=== PATIENT | female | born 1975 | race Caucasian/White ===

== ENCOUNTER 2017-07-16 00:01 | Emergency (ER) | payer OTHER ==
[~2017-07-16] VITALS: Ht 162.6 cm; Wt 72.6 kg
[~2017-07-16 00:01] MED LIST: ACETAMINOPHEN325 M1 PO; ALBUTEROL INH; ALEVE220 MG PO; ALPRAZOLAM PO; AMITRIPTYLINE H25 M2 PO; ANASPAZ0.125 MG SL; ATIVAN0.5 MG; AUGMENTIN 875875 MG PO; BACTRIM DS TAB1 EACH PO; BENTYL 10 MG CA10 M1 PO; BENTYL20 MG PO; CARAFATE 1 GM TA1 G1 PO; CARISOPRODOL 3350 MG PO; CIPRO500 MG PO; CLIMARA 0.00.0375 MG TD; CLONAZEPAM PO; COMPAZINE10 MG; COMPAZINE5 MG PO; COUMADIN7.5 MG; CYMBALTA20 MG; DESYREL50 MG PO; DIAZEPAM 5 MG5 M1; DILAUDID 2 MG TA2 MG PO; DILAUDID2 M1 PO; ELIQUIS5 MG PO; ENOXAPARIN80 MG/0.8; FLUCONAZOLE PO; GOLYTELY SOLU4000 ML PO; HYDROCODON-ACE1 EAC8 PO; HYDROCODON-ACE1 EACH; HYDROCODONE-APA1 TA1 PO; KEPPRA 500 MG500 M1 PO; KLOR-CON 1010 MEQ PO; LEXAPRO 10 MG T10 M1 PO; LEXAPRO20 MG PO; LIDODERM 5%1 PATC1 TRANSDERM; LOPERAMIDE 2 MG2 M1 PO; LORTAB; LORTABELXR PO; MACROBID 100 M100 M1 PO; METHADONE HCL5 MG PO; METOCLOPRAMIDE10 MG PO; MOBIC7.5 MG PO; MULTIVITAMINS PO; NAPROSYN500 MG PO; NEPHROCAPS SOFT1 CAP PO; NEURONTIN600 MG PO; NEXIUM40 MG; NEXIUM40 MG PO; NORCO 10-325 T1 EACH PO; NORCO 5-325 TA1 EACH PO; NORCO 7.5-3251 EACH PO; NORFLEX100 MG PO; NORTRIPTYLINE H25 M3; ONDANSETRON HCL4 M3 PO; OSMOLITE CAL; OXYCODONE HCL E15 MG PO; OXYCONTIN10 M1 PO; PAMELOR25 MG PO; PERCOCET 10-321 EACH PO; PERCOCET 5-3251 EACH PO; PERCOCET 7.5-31 EACH PO; PERCOCET PO; PHENERGAN 25 MG25 M1; PHENERGAN 25 MG25 M1 PO; PHENERGAN 25 MG25 MG PO; POTASSIUM20 OR; POTASSIUM20 PO; PREDNISONE50 MG PO; PRILOSEC 20 MG20 MG PO; PROAIR HFA8.5 GM INH; PROMETHAZINE HC25 MG RECTAL; PROMS25 WY RECTAL; PROTONIX40 M1 PO; PROZAC 10 MG CA10 M1 PO; PROZAC 20 MG20 M1 PO; PROZAC 20 MG20 MG PO; REGLAN 10 MG TA10 MG PO; REGLAN 5 MG TAB5 MG PO; TESSALON PERLE100 MG; TESSALON PERLE100 MG PO; TOPAMAX200 MG PO; TRANSDERM-SCO1 PATC1 TD; TRAZODONE 150150 M1 PO; VICODIN 5-5001 EACH PO; VITAMINC500 PO; VIVELLE-DOT1 EAC1 TD; XANAX 0.25 MG0.25 MG PO; XANAX 0.5 MG0.5 M1 PO; XANAX XR1 MG PO; XANAX1 MG PO; ZENPEP DR 20,01 EACH PO; ZINC SULFATE 2220 M1 PO; ZOFRAN ODT4 MG PO; ZOFRAN4 MG PO; ZOLOFT50 MG PO; ZPAK; ZYPREXA2.5 MG PO; [UNRECOGNIZED DRUG - OTHER] PO; [UNRECOGNIZED DRUG - OTHER] PO
[2017-07-16 00:32] LABS: ABSOLUTE EOSINOPHILS 0.1 thou/uL (0.0-0.7); ABSOLUTE LYMPHOCYTES 2.4 thou/uL (0.8-5.3); ABSOLUTE MONOCYTES 0.3 thou/uL (0.0-1.2); ABSOLUTE NEUTROPHILS 4.7 thou/uL (1.6-8.1); BASOPHILS 0.5 %; EOSINOPHILS 1.4 %; HEMATOCRIT 44.7 % (37.0-47.0); LYMPHOCYTES 31.5 %; MCH 29.8 pg (26.0-34.0); MCHC 33.5 g/dL (28.0-37.0); MONOCYTES 4.3 %; MPV 8.5 fl. (7.2-11.1); NUCLEATED RBCS 0 /100WBC; PLATELET COUNT* 220 thou/uL (150-400); POLYS 62.3 %; RBC 5.03 mil/uL (4.20-5.00); RDW-CV 15.5 % (10.5-14.5); WBC 7.6 thou/uL (4.0-11.0)
[2017-07-16 00:42] LABS: ANION GAP 10 mmol/L (7-16); BUN 12 mg/dL (7-18); CALCIUM 9.2 mg/dL (8.5-10.1); CHLORIDE 100 mmol/L (98-107); CO2 29 mmol/L (21-32); CREATININE 0.8 mg/dL (0.6-1.3); GLUCOSE 116 mg/dL (70-99); POTASSIUM 3.2 mmol/L (3.5-5.1); SODIUM 139 mmol/L (136-145)
[2017-07-16 00:49] LABS: ALBUMIN 3.8 g/dL (3.4-5.0); ALKALINE PHOSPHATASE 121 U/L (46-116); LIPASE 120 U/L (73-393); SGOT 15 U/L (15-37); SGPT 21 U/L (30-65); TOTAL BILIRUBIN 0.5 mg/dL (<0.1-1.0); TOTAL PROTEIN 7.4 g/dL (6.4-8.2); TROPONIN-I LEVEL <0.06 ng/mL (<0.06)
[2017-07-16] MEDS ORDERED: PHENERGAN 25 MG25 M1 PO (04:08)
[2017-07-16] MEDS ORDERED: POTASSIUM20 PO (04:08)
[2017-07-16 04:16] VITALS: BP 124/66
--- NOTE | 2017-07-16 12:51 | EKG ---
[place] [address] ELECTROCARDIOGRAM REPORT Name: NATHALIA CASTRO Room: [facility]#: [id number] Admission: 07/16/17 Attend Phys: Discharge: 07/16/17 Date of : 75 Report #: [id number] THIS REPORT FOR: //name// [facility] ED Test Date: 2017-07-16 Test Time: 00:15:42 Pat Name: NATHALIA CASTRO Department: Room: Gender: F Fence Maker: RICHIE Wright : 1975 Requested By: Edie Rapp Order Number: [id number] MD: Frank Strange Measurements Intervals [place] Rate: 95 P: 28 VT: 158 QRS: 16 QRSD: 121 T: -27 QT: 357 QTc: 449 Interpretive Statements Sinus rhythm Nonspecific T abnormalities, inferior leads Baseline wander in lead(s) II,III,aVF Compared to ECG 09/25/2016 20:47:40 Sinus tachycardia no longer present T-wave abnormality still present Electronically Signed On 07-16-2017 12:51:46 SPARE FIX[employer] by Frank Strange [email or web address] <ELECTRONICALLY SIGNED> By: Frank Strange MD, FACC 07/16/17 1251 0015 0015 Frank Strange MD, [facility] /EPI
== END 2017-07-16 04:16 | disposition home or self-care (01) ==
LOC: M.ERS 00:01
PROVIDERS: Emergency Medicine
DX: R11.2 Nausea with vomiting, unspecified (principal); R19.7 Diarrhea, unspecified; F17.210 Nicotine dependence, cigarettes, uncomplicated; Z85.528 Personal history of other malignant neoplasm of kidney; Z90.5 Acquired absence of kidney; Z90.710 Acquired absence of both cervix and uterus; Z88.1 Allergy status to other antibiotic agents; Z88.5 Allergy status to narcotic agent

== ENCOUNTER 2018-11-11 23:39 | Emergency (ER) | payer OTHER ==
[~2018-11-11] VITALS: Ht 165.1 cm; Wt 97.5 kg
[2018-11-11] MEDS ORDERED: LAMOTRIGINE150 MG PO (23:52)
[2018-11-12 00:24] LABS: ABSOLUTE BASOPHILS 0.1 thou/uL (0.0-0.2); ABSOLUTE EOSINOPHILS 0.3 thou/uL (0.0-0.7); ABSOLUTE LYMPHOCYTES 2.8 thou/uL (0.8-5.3); ABSOLUTE MONOCYTES 0.4 thou/uL (0.0-1.2); ABSOLUTE NEUTROPHILS 4.3 thou/uL (1.6-8.1); BASOPHILS 1.1 %; EOSINOPHILS 4.3 %; HEMATOCRIT 41.3 % (37.0-47.0); HEMOGLOBIN 13.8 gm/dL (12.0-15.0); LYMPHOCYTES 35.6 %; MCH 28.7 pg (26.0-34.0); MCHC 33.3 g/dL (28.0-37.0); MCV 86.3 fL (80.0-100.0); MONOCYTES 5.2 %; MPV 8.7 fl. (7.2-11.1); NUCLEATED RBCS 0 /100WBC; PLATELET COUNT* 257 thou/uL (150-400); POLYS 53.8 %; RBC 4.79 mil/uL (4.20-5.00); RDW-CV 13.8 % (10.5-14.5); WBC 7.9 thou/uL (4.0-11.0)
[2018-11-12 00:36] LABS: ALBUMIN 3.8 g/dL (3.4-5.0); CALCIUM 8.6 mg/dL (8.5-10.1); CREATININE 0.7 mg/dL (0.6-1.3); POTASSIUM 3.4 mmol/L (3.5-5.1); TOTAL BILIRUBIN 0.2 mg/dL (<0.1-1.0); TOTAL PROTEIN 7.3 g/dL (6.4-8.2)
[2018-11-12 01:43] LABS: URINE BILIRUBIN NEGATIVE (Negative); URINE CLARITY CLEAR; URINE COLOR YELLOW; URINE GLUCOSE-RANDOM NEGATIVE (Negative); URINE KETONES NEGATIVE (Negative); URINE PROTEIN NEGATIVE (Negative); URINE SPECIFIC GRAVITY > 1.030 (1.005-1.030)
[2018-11-12 01:44] LABS: URINE BLOOD 3+ (Negative); URINE LEUKOCYTES-REFLEX NEGATIVE (Negative); URINE NITRITE-REFLEX NEGATIVE (Negative); URINE UROBILINOGEN 0.2 E.U./dl (0.2-1.0)
[2018-11-12 01:50] LABS: BACTERIA-REFLEX >30 Many /HPF (None Seen); CASTS None Seen /LPF (None Seen); CRYSTALS None Seen /LPF (None Seen); MUCUS 0-3 Light strn/LPF (None Seen); SQUAMOUS 0-3 Few /LPF (0-3); URINE RBC >20 Many /HPF (0-2); URINE WBC-REFLEX 0-5 Rare /HPF (0-5)
[2018-11-12] MEDS ORDERED: NORCO 5-325 TA1 EAC1 PO (01:52)
[2018-11-12] MEDS ORDERED: ZOFRAN ODT4 MG DISSOLVE (01:52)
[2018-11-12 02:11] VITALS: BP 100/66
== END 2018-11-12 02:14 | disposition home or self-care (01) ==
LOC: M.ERS 23:39
PROVIDERS: Emergency Medicine Emergency Medical Services
DX: R10.84 Generalized abdominal pain (principal); R11.2 Nausea with vomiting, unspecified; R19.7 Diarrhea, unspecified; F17.210 Nicotine dependence, cigarettes, uncomplicated; Z88.1 Allergy status to other antibiotic agents; Z88.5 Allergy status to narcotic agent; Z88.6 Allergy status to analgesic agent; Z88.8 Allergy status to other drugs, medicaments and biological substances; Z85.528 Personal history of other malignant neoplasm of kidney; Z87.01 Personal history of pneumonia (recurrent); Z90.710 Acquired absence of both cervix and uterus; Z90.5 Acquired absence of kidney

== ENCOUNTER 2020-09-28 23:09 | Emergency (ER) | payer OTHER ==
[~2020-09-28] VITALS: Ht 162.6 cm; Wt 90.7 kg
[~2020-09-28 23:09] MED LIST changes: +BENTYL 20 MG TA20 M1 PO; +LAMOTRIGINE150 MG PO; +NORCO 5-325 TA1 EAC1 PO; +ZOFRAN ODT4 MG DISSOLVE
[2020-09-28] MEDS ORDERED: NEURONTIN300 MG PO (23:27)
[2020-09-28 23:30] LABS: URINE BILIRUBIN NEGATIVE (Negative); URINE BLOOD 3+ (Negative); URINE CLARITY CLEAR; URINE GLUCOSE-RANDOM NEGATIVE (Negative); URINE KETONES NEGATIVE (Negative); URINE LEUKOCYTES-REFLEX NEGATIVE (Negative); URINE NITRITE-REFLEX NEGATIVE (Negative); URINE PROTEIN NEGATIVE (Negative); URINE SPECIFIC GRAVITY <= 1.005 (1.005-1.030); URINE UROBILINOGEN 0.2 E.U./dl (0.2-1.0)
[2020-09-28 23:32] LABS: URINE COLOR PINK
[2020-09-28 23:45] LABS: ABSOLUTE BASOPHILS 0.1 thou/uL (0.0-0.2); ABSOLUTE EOSINOPHILS 0.4 thou/uL (0.0-0.7); ABSOLUTE LYMPHOCYTES 2.9 thou/uL (0.8-5.3); ABSOLUTE MONOCYTES 0.4 thou/uL (0.0-1.2); ABSOLUTE NEUTROPHILS 4.9 thou/uL (1.6-8.1); BASOPHILS 0.8 %; EOSINOPHILS 4.8 %; HEMATOCRIT 37.7 % (37.0-47.0); HEMOGLOBIN 12.6 gm/dL (12.0-15.0); LYMPHOCYTES 33.4 %; MCH 28.4 pg (26.0-34.0); MCHC 33.4 g/dL (28.0-37.0); MONOCYTES 4.6 %; MPV 8.4 fl. (7.2-11.1); NUCLEATED RBCS 0 /100WBC; PLATELET COUNT* 253 thou/uL (150-400); POLYS 56.4 %; RBC 4.44 mil/uL (4.20-5.00); WBC 8.7 thou/uL (4.0-11.0)
[2020-09-28 23:53] LABS: CALCIUM 9.3 mg/dL (8.5-10.1); CREATININE 0.6 mg/dL (0.6-1.3)
[2020-09-28 23:54] LABS: SQUAMOUS 0-3 Few /LPF (0-3); URINE RBC >20 Many /HPF (0-2); URINE WBC-REFLEX None Seen /HPF (0-5)
[2020-09-28 23:54] LABS: POTASSIUM 2.9 mmol/L (3.5-5.1)
[2020-09-28 23:55] LABS: BACTERIA-REFLEX 1-9 Few /HPF (None Seen); CASTS None Seen /LPF (None Seen); CRYSTALS None Seen /LPF (None Seen); MUCUS 4-6 Moderate strn/LPF (None Seen)
[2020-09-29 00:30] LABS: AMP/METHAMP Negative (Negative); BARBITURATES Negative (Negative); BENZODIAZEPINES Negative (Negative); COCAINE Negative (Negative); METHADONE Negative (Negative); OPIATES POSITIVE (Negative); PCP Negative (Negative); THC Negative (Negative)
[2020-09-29] MEDS ORDERED: POTASSIUM20 PO (01:51)
[2020-09-29] MEDS ORDERED: ZOFRAN ODT4 MG PO (01:53)
[2020-09-29] MEDS ORDERED: HYDROCODON-ACE1 EAC8 PO (01:53)
[2020-09-29] MEDS ORDERED: PHENERGAN 25 MG25 M1 PO (01:55)
[2020-09-29 02:50] VITALS: BP 143/94
== END 2020-09-29 02:51 | disposition home or self-care (01) ==
LOC: M.ERS 23:09
PROVIDERS: Emergency Medicine
DX: N23 Unspecified renal colic (principal); R11.2 Nausea with vomiting, unspecified; F17.210 Nicotine dependence, cigarettes, uncomplicated; Z88.1 Allergy status to other antibiotic agents; Z88.6 Allergy status to analgesic agent; Z88.5 Allergy status to narcotic agent; Z85.528 Personal history of other malignant neoplasm of kidney; Z87.01 Personal history of pneumonia (recurrent); Z90.710 Acquired absence of both cervix and uterus; Z79.899 Other long term (current) drug therapy

== ENCOUNTER 2020-10-05 10:03 | Emergency (ER) | payer OTHER ==
[~2020-10-05] VITALS: Ht 165.1 cm; Wt 95.3 kg
[~2020-10-05 10:03] MED LIST changes: +NEURONTIN300 MG PO
[2020-10-05] MEDS ORDERED: FLOMAX0.4 MG PO (10:15)
[2020-10-05 10:22] LABS: URINE BILIRUBIN NEGATIVE (Negative); URINE BLOOD 2+ (Negative); URINE CLARITY CLEAR; URINE COLOR YELLOW; URINE GLUCOSE-RANDOM NEGATIVE (Negative); URINE KETONES NEGATIVE (Negative); URINE LEUKOCYTES-REFLEX NEGATIVE (Negative); URINE NITRITE-REFLEX NEGATIVE (Negative); URINE PROTEIN NEGATIVE (Negative); URINE UROBILINOGEN 0.2 E.U./dl (0.2-1.0)
[2020-10-05 10:26] LABS: SQUAMOUS >10 Many /LPF (0-3); URINE WBC-REFLEX None Seen /HPF (0-5)
[2020-10-05 10:27] LABS: CASTS None Seen /LPF (None Seen); CRYSTALS None Seen /LPF (None Seen); MUCUS None Seen strn/LPF (None Seen)
[2020-10-05 10:36] LABS: ABSOLUTE BASOPHILS 0.1 thou/uL (0.0-0.2); ABSOLUTE EOSINOPHILS 0.4 thou/uL (0.0-0.7); ABSOLUTE LYMPHOCYTES 2.4 thou/uL (0.8-5.3); ABSOLUTE MONOCYTES 0.3 thou/uL (0.0-1.2); ABSOLUTE NEUTROPHILS 5.1 thou/uL (1.6-8.1); EOSINOPHILS 4.9 %; HEMATOCRIT 40.4 % (37.0-47.0); HEMOGLOBIN 13.6 gm/dL (12.0-15.0); LYMPHOCYTES 28.7 %; MCH 28.5 pg (26.0-34.0); MCHC 33.7 g/dL (28.0-37.0); MCV 84.7 fL (80.0-100.0); MPV 8.6 fl. (7.2-11.1); NUCLEATED RBCS 0 /100WBC; PLATELET COUNT* 274 thou/uL (150-400); POLYS 61.4 %; RBC 4.77 mil/uL (4.20-5.00); RDW-CV 15.3 % (10.5-14.5); WBC 8.3 thou/uL (4.0-11.0)
[2020-10-05 10:43] LABS: CALCIUM 8.9 mg/dL (8.5-10.1); CREATININE 0.7 mg/dL (0.6-1.3); POTASSIUM 3.2 mmol/L (3.5-5.1)
[2020-10-05 10:48] LABS: ALBUMIN 3.9 g/dL (3.4-5.0); TOTAL BILIRUBIN 0.2 mg/dL (<0.1-1.0); TOTAL PROTEIN 7.6 g/dL (6.4-8.2)
[2020-10-05 11:05] VITALS: BP 189/111
== END 2020-10-05 11:05 | disposition home or self-care (01) ==
LOC: M.ERS 10:03
PROVIDERS: Family Medicine
DX: R10.84 Generalized abdominal pain (principal); M54.9 Dorsalgia, unspecified; R11.2 Nausea with vomiting, unspecified; R63.0 Anorexia; G40.909 Epilepsy, unspecified, not intractable, without status epilepticus; F17.210 Nicotine dependence, cigarettes, uncomplicated; Z98.84 Bariatric surgery status; Z90.711 Acquired absence of uterus with remaining cervical stump; Z90.49 Acquired absence of other specified parts of digestive tract; Z85.528 Personal history of other malignant neoplasm of kidney; Z79.899 Other long term (current) drug therapy; Z88.1 Allergy status to other antibiotic agents; Z88.5 Allergy status to narcotic agent; Z88.6 Allergy status to analgesic agent